=== PATIENT | female | born 1970 | race Caucasian/White ===

== ENCOUNTER 2023-10-05 10:48 | Inpatient (IN) | payer MEDICAID, OTHER ==
[~2023-10-05] VITALS: Ht 170.2 cm; Wt 90.7 kg
[2023-10-05 11:20] LABS: GLUCOMETER DEV NAME(LOC) ER.7; GLUCOSE,POINT OF CARE 242 MG/DL (70-110)
[2023-10-05] MEDS ORDERED: ZOLPIDEM TARTRATE 10 MG TABLET PO PRN (12:00)
[2023-10-05 15:02] LABS: BASOPHILS % (AUTO) 2.3 % (0.0-2.0); EOSINOPHILS % (AUTO) 2.6 % (1.0-6.0); HEMATOCRIT 45.3 % (36-46); HEMOGLOBIN 15.2 g/dL (12.0-16.0); LYMPHOCYTES # (AUTO) 2.5 K/uL (1.0-4.8); MEAN CORPUSCULAR HEMOGLOBIN 27.5 pg (26.0-34.0); MEAN CORPUSCULAR HGB CONC 33.5 G/dL (31.0-37.0); MEAN CORPUSCULAR VOLUME 82 fL (80-100); MONOCYTES # (AUTO) 0.6 K/uL (0.1-1.0); NEUTROPHILS # (AUTO) 5.8 K/uL (1.8-7.7); NEUTROPHILS % (AUTO) 62.1 % (40.0-70.0); PLATELET COUNT (AUTO) 245 K/uL (150-450); RED BLOOD CELL COUNT(AUTO) 5.53 MIL/uL (4.00-5.20); RED CELL DISTRIBUTION WIDTH 13.5 % (11.5-14.5); WHITE BLOOD COUNT (AUTO) 9.3 K/uL (4.5-11.0)
[2023-10-05 15:13] LABS: ANION GAP 8 mmol/L (8-16); CALCIUM, TOTAL 9.4 mg/dL (8.8-10.5); CARBON DIOXIDE 28 mmol/L (22-29); CHLORIDE 104 mmol/L (98-107); CREATININE 0.54 mg/dL (0.60-1.30); GLOMERULAR FILTR. RATE CALC > 60 mL/min (>60); GLUCOSE,RANDOM 177 mg/dL (70-110); POTASSIUM 3.7 mmol/L (3.5-5.1); SODIUM SERUM 140 mmol/L (136-145); UREA NITROGEN, BLOOD 10 mg/dL (7-18)
[2023-10-05] MEDS: LORazepam 2 MG TABLET PO PRN (16:15)
[2023-10-05] MEDS: HALOPERIDOL 5 MG TABLET PO PRN (16:15)
[2023-10-05 16:17] LABS: ALCOHOL, BLOOD (SERUM) < 3 mg/dL (0-10)
[2023-10-05] MEDS: HALOPERIDOL LACTATE 5 MG/ML VIAL IM ONE (17:21)
[2023-10-05] MEDS: LORazepam 2 MG/ML VIAL IM ONE (17:21)
[2023-10-05] MEDS: DiphenhydrAMINE HCL 50 MG/ML VIAL IM ONE (17:21)
[2023-10-05 18:26] LABS: COVID AG,FIA SOURCE NASAL SWAB
[2023-10-05 19:15] LABS: SARS-COV2 (COVID) ANTIGEN,FIA Negative (Negative)
[2023-10-06 02:38] VITALS: BP 94/62; PULSE 71; RESP 16; TEMP 97.6; O2SAT 96
[2023-10-06 06:10] LABS: GLUCOMETER DEV NAME(LOC) BV2S.; GLUCOSE,POINT OF CARE 180 MG/DL (70-110)
[2023-10-06] MEDS ORDERED: GLUCAGON,HUMAN RECOMBINANT 1 MG VIAL IM PRN (06:15)
[2023-10-06] MEDS: INSULIN LISPRO 100 UNITS/ML SQ PRN (06:28)
[2023-10-06] MEDS ORDERED: CloNIDine HCL 0.1 MG TABLET PO PRN (06:30)
[2023-10-06] MEDS ORDERED: DOCUSATE SODIUM 100 MG CAPSULE PO PRN (06:30)
[2023-10-06] MEDS ORDERED: ALBUTEROL SULFATE HFA 90 MCG/PUFF 8 GM INHALER IH PRN (06:30)
[2023-10-06] MEDS ORDERED: ONDANSETRON HCL 4 MG TABLET PO PRN (06:30)
[2023-10-06] MEDS ORDERED: LOPERAMIDE HCL 2 MG CAPSULE PO PRN (06:30)
[2023-10-06] MEDS ORDERED: ACETAMINOPHEN 325 MG TABLET PO PRN (06:30)
[2023-10-06] MEDS ORDERED: PETROLATUM,WHITE 28 GM JELLY TP PRN (06:30)
[2023-10-06] MEDS ORDERED: IBUPROFEN 400 MG TABLET PO PRN (06:30)
[2023-10-06] MEDS ORDERED: MAGNESIUM HYDROXIDE SUSPENSION 30 ML UDCUP PO PRN (06:30)
[2023-10-06] MEDS ORDERED: MAG HYDROX/ALUMINUM HYD/SIMETH ES 30 ML SUSPENSION UDCUP PO PRN (06:30)
[2023-10-06] MEDS ORDERED: GuaiFENesin/D-METHORPHAN [SUGAR-FREE] 200-20MG/10 ML SYRUP UDCUP PO PRN (06:30)
[2023-10-06] MEDS ORDERED: PNEUMOCOCCAL VACCINE POLYVALENT 0.5 ML SYRINGE [PPSV23] IM. ONE (07:00)
[2023-10-06 08:18] VITALS: BP 101/63; PULSE 80; RESP 15; TEMP 97.9; O2SAT 97
[2023-10-06 11:55] LABS: GLUCOMETER DEV NAME(LOC) BV2S.; GLUCOSE,POINT OF CARE 347 MG/DL (70-110)
[2023-10-06] MEDS: NICOTINE 14 MG/24 HOUR PATCH TD PRN (13:16)
[2023-10-06 17:10] LABS: GLUCOMETER DEV NAME(LOC) BV2S.; GLUCOSE,POINT OF CARE 122 MG/DL (70-110)
[2023-10-06 20:26] LABS: GLUCOMETER DEV NAME(LOC) BV2S.; GLUCOSE,POINT OF CARE 116 MG/DL (70-110)
[2023-10-07 06:51] LABS: GLUCOMETER DEV NAME(LOC) BV2S.; GLUCOSE,POINT OF CARE 206 MG/DL (70-110)
[2023-10-07 08:35] VITALS: BP 98/61; PULSE 87; RESP 17; TEMP 97.1; O2SAT 96
[2023-10-07 08:39] LABS: CHOL/HDL RATIO 4.9 (3.9-5.7); THYROID STIMULATING HORMONE 2.54 uIU/mL (0.36-3.74)
[2023-10-07 08:43] LABS: HEMOGLOBIN A1C 11.3 % (3.8-5.6)
[2023-10-07 11:20] VITALS: BP 160/82
[2023-10-07 12:51] LABS: GLUCOMETER DEV NAME(LOC) BV2S.; GLUCOSE,POINT OF CARE 311 MG/DL (70-110)
[2023-10-07] MEDS: OLANZapine 5 MG RAPDIS TABLET PO SCH (17:10)
[2023-10-07 20:13] VITALS: RESP 16
[2023-10-07 20:45] LABS: GLUCOMETER DEV NAME(LOC) BV2S.; GLUCOSE,POINT OF CARE 333 MG/DL (70-110)
[2023-10-08 04:56] LABS: GLUCOMETER DEV NAME(LOC) BV2S.; GLUCOSE,POINT OF CARE 155 MG/DL (70-110)
[2023-10-08 06:15] LABS: GLUCOMETER DEV NAME(LOC) BV2S.; GLUCOSE,POINT OF CARE 196 MG/DL (70-110)
[2023-10-08 09:02] VITALS: RESP 18
[2023-10-08 11:31] LABS: GLUCOMETER DEV NAME(LOC) BV2S.; GLUCOSE,POINT OF CARE 298 MG/DL (70-110)
[2023-10-08] MEDS ORDERED: OLAN5TAB94 PO (12:08)
== END 2023-10-08 14:35 | disposition home or self-care (01) | DRG 750 ==
LOC: EMS 10:48 → B2S 23:26
PROVIDERS: ADMIT Psychiatry & Neurology Psychiatry; ATTEND Psychiatry & Neurology Psychiatry
PROC: GZHZZZZ Group Psychotherapy (ICD-10-PCS; principal; 2023-10-06)
PROC: GZ51ZZZ Individual Psychotherapy, Behavioral (ICD-10-PCS; 2023-10-06)
PROC: GZ58ZZZ Individual Psychotherapy, Cognitive-Behavioral (ICD-10-PCS; 2023-10-06)
DX: F25.1 Schizoaffective disorder, depressive type (principal); R45.851 Suicidal ideations; E10.65 Type 1 diabetes mellitus with hyperglycemia; D72.829 Elevated white blood cell count, unspecified; E66.9 Obesity, unspecified; E87.6 Hypokalemia; F15.10 Other stimulant abuse, uncomplicated; F10.10 Alcohol abuse, uncomplicated; Z20.822 Contact with and (suspected) exposure to COVID-19; Y90.9 Presence of alcohol in blood, level not specified; Z79.4 Long term (current) use of insulin; Z87.891 Personal history of nicotine dependence; Z88.0 Allergy status to penicillin; Z91.51 Personal history of suicidal behavior; Z98.84 Bariatric surgery status; Z88.5 Allergy status to narcotic agent; Z88.8 Allergy status to other drugs, medicaments and biological substances; Z68.31 Body mass index [BMI] 31.0-31.9, adult
CPT/HCPCS: 80048; 80061; 82962; 83036; 84443; 85025; 99285; G0480; J1200; J1630; J2060

== ENCOUNTER 2024-02-19 17:46 | Inpatient (IN) | payer MEDICAID ==
[~2024-02-19 17:46] MED LIST: OLAN5TAB94 PO
[2024-02-19] MEDS ORDERED: ZOLPIDEM TARTRATE 10 MG TABLET PO PRN (18:30)
[2024-02-19 18:55] LABS: GLUCOMETER DEV NAME(LOC) POC.BV; POC SARS-COV2 AG, FIA NEGATIVE (NEGATIVE)
[2024-02-19 20:47] VITALS: BP 130/76; PULSE 74; RESP 18; TEMP 98; O2SAT 96
[2024-02-19 22:51] LABS: GLUCOMETER DEV NAME(LOC) BV3S.; GLUCOSE,POINT OF CARE 152 MG/DL (70-110)
[2024-02-20 06:36] LABS: GLUCOMETER DEV NAME(LOC) BV3S.; GLUCOSE,POINT OF CARE 156 MG/DL (70-110)
[2024-02-20 08:12] VITALS: BP 126/78; PULSE 83; RESP 16; TEMP 96.9; O2SAT 97
[2024-02-20 08:43] LABS: EOSINOPHILS % (AUTO) 3.7 % (1.0-6.0); HEMATOCRIT 40.3 % (36-46); HEMOGLOBIN 13.8 g/dL (12.0-16.0); LYMPHOCYTES # (AUTO) 2.5 K/uL (1.0-4.8); LYMPHOCYTES % (AUTO) 26.8 % (22.0-44.0); MEAN CORPUSCULAR HEMOGLOBIN 29.1 pg (26.0-34.0); MEAN CORPUSCULAR HGB CONC 34.3 G/dL (31.0-37.0); MEAN CORPUSCULAR VOLUME 85 fL (80-100); MONOCYTES # (AUTO) 0.6 K/uL (0.1-1.0); MONOCYTES % (AUTO) 6.2 % (2.0-9.0); NEUTROPHILS # (AUTO) 5.6 K/uL (1.8-7.7); NEUTROPHILS % (AUTO) 61.3 % (40.0-70.0); PLATELET COUNT (AUTO) 289 K/uL (150-450); RED BLOOD CELL COUNT(AUTO) 4.76 MIL/uL (4.00-5.20); RED CELL DISTRIBUTION WIDTH 13.6 % (11.5-14.5); WHITE BLOOD COUNT (AUTO) 9.2 K/uL (4.5-11.0)
[2024-02-20 08:45] LABS: HEMOGLOBIN A1C 7.5 % (3.8-5.6)
[2024-02-20 09:03] LABS: ALANINE AMINOTRANSFERASE 15 U/L (12-78); ALBUMIN 2.8 g/dL (3.4-5.0); ALKALINE PHOSPHATASE 62 U/L (46-116); ANION GAP 4 mmol/L (8-16); ASPARTATE AMINOTRANSFERASE 14 U/L (15-37); BILIRUBIN,TOTAL 0.4 mg/dL (0.1-1.0); CALCIUM, TOTAL 8.8 mg/dL (8.8-10.5); CARBON DIOXIDE 30 mmol/L (22-29); CHLORIDE 105 mmol/L (98-107); CHOL/HDL RATIO 3.2 (3.9-5.7); CHOLESTEROL 178 mg/dL (131-200); CREATININE 0.68 mg/dL (0.60-1.30); FREE T4 (FREE THYROXINE) 1.14 ng/dL (0.76-1.46); GLOMERULAR FILTR. RATE CALC > 60 mL/min (>60); GLUCOSE,RANDOM 169 mg/dL (70-110); HDL CHOLESTEROL 55 mg/dL (40-60); LDL CHOL (CALC.) 100 mg/dL (0-130); POTASSIUM 3.9 mmol/L (3.5-5.1); SODIUM SERUM 139 mmol/L (136-145); T4 (THYROXINE) 8.6 mcg/dL (4.7-13.3); THYROID STIMULATING HORMONE 1.84 uIU/mL (0.36-3.74); TOTAL PROTEIN, SERUM 6.3 g/dL (6.4-8.2); TRIGLYCERIDES 113 mg/dL (15-150); UREA NITROGEN, BLOOD 10 mg/dL (7-18)
[2024-02-20 11:56] LABS: GLUCOMETER DEV NAME(LOC) BV3S.; GLUCOSE,POINT OF CARE 201 MG/DL (70-110)
[2024-02-20] MEDS ORDERED: MAG HYDROX/ALUMINUM HYD/SIMETH ES 30 ML SUSPENSION UDCUP PO PRN (14:45)
[2024-02-20] MEDS ORDERED: PETROLATUM,WHITE 28 GM JELLY TP PRN (14:45)
[2024-02-20] MEDS ORDERED: MAGNESIUM HYDROXIDE SUSPENSION 30 ML UDCUP PO PRN (14:45)
[2024-02-20] MEDS ORDERED: ONDANSETRON 4 MG TABLET PO PRN (14:45)
[2024-02-20] MEDS ORDERED: CloNIDine HCL 0.1 MG TABLET PO PRN (14:45)
[2024-02-20] MEDS ORDERED: ALBUTEROL SULFATE HFA 90 MCG/PUFF 8 GM INHALER IH PRN (14:45)
[2024-02-20] MEDS ORDERED: DOCUSATE SODIUM 100 MG CAPSULE PO PRN (14:45)
[2024-02-20] MEDS ORDERED: LOPERAMIDE HCL 2 MG CAPSULE PO PRN (14:45)
[2024-02-20] MEDS ORDERED: GuaiFENesin/D-METHORPHAN [SUGAR-FREE] 200-20MG/10 ML SYRUP UDCUP PO PRN (14:45)
[2024-02-20] MEDS ORDERED: IBUPROFEN 400 MG TABLET PO PRN (14:45)
[2024-02-20] MEDS ORDERED: NICOTINE 14 MG/24 HOUR PATCH TD PRN (14:45)
[2024-02-20] MEDS ORDERED: ACETAMINOPHEN 325 MG TABLET PO PRN (14:45)
[2024-02-20] MEDS: OLANZapine 5 MG TABLET PO SCH (16:12)
[2024-02-20 16:41] LABS: GLUCOMETER DEV NAME(LOC) BV3S.; GLUCOSE,POINT OF CARE 202 MG/DL (70-110)
[2024-02-20] MEDS: TraZODone HCL 150 MG TABLET PO SCH (20:16)
[2024-02-20 20:28] VITALS: BP 125/69; PULSE 70; RESP 16; TEMP 97.9; O2SAT 98
[2024-02-20 20:45] LABS: GLUCOMETER DEV NAME(LOC) BV3S.; GLUCOSE,POINT OF CARE 218 MG/DL (70-110)
[2024-02-21 06:31] LABS: GLUCOMETER DEV NAME(LOC) BV3S.; GLUCOSE,POINT OF CARE 169 MG/DL (70-110)
[2024-02-21] MEDS: ATOMOXETINE HCL 40 MG CAPSULE PO SCH (08:17)
[2024-02-21 08:46] VITALS: BP 124/75; PULSE 79; RESP 19; TEMP 97; O2SAT 99
[2024-02-21] MEDS: HALOPERIDOL 5 MG TABLET PO PRN (11:22)
[2024-02-21] MEDS: LORazepam 2 MG TABLET PO PRN (11:22)
[2024-02-21 11:40] LABS: GLUCOMETER DEV NAME(LOC) BV3S.; GLUCOSE,POINT OF CARE 208 MG/DL (70-110)
[2024-02-22 03:36] LABS: GLUCOMETER DEV NAME(LOC) BV3S.; GLUCOSE,POINT OF CARE 260 MG/DL (70-110)
[2024-02-22 06:40] LABS: GLUCOMETER DEV NAME(LOC) BV3S.; GLUCOSE,POINT OF CARE 204 MG/DL (70-110)
[2024-02-22 08:09] VITALS: BP 127/67; PULSE 79; RESP 17; TEMP 96.6; O2SAT 95
[2024-02-22 11:50] LABS: GLUCOMETER DEV NAME(LOC) BV3S.; GLUCOSE,POINT OF CARE 295 MG/DL (70-110)
[2024-02-22] MEDS: INFLUENZA VIRUS VACCINE TVS (6MO+) 2024-25/PF 45 MCG/0.5 ML SYRINGE IM. ONE (16:09)
[2024-02-22 17:06] LABS: GLUCOMETER DEV NAME(LOC) BV3S.; GLUCOSE,POINT OF CARE 251 MG/DL (70-110)
[2024-02-22 20:00] VITALS: BP 98/64; PULSE 72; RESP 16; TEMP 97.1; O2SAT 96
[2024-02-23 06:16] LABS: GLUCOMETER DEV NAME(LOC) BV3S.; GLUCOSE,POINT OF CARE 197 MG/DL (70-110)
[2024-02-23 08:41] LABS: HEMOGLOBIN A1C 7.9 % (3.8-5.6)
[2024-02-23 08:53] LABS: CHOL/HDL RATIO 3.8 (3.9-5.7); THYROID STIMULATING HORMONE 2.66 uIU/mL (0.36-3.74)
[2024-02-23 09:11] VITALS: BP 130/84; PULSE 91; RESP 17; TEMP 97.9; O2SAT 96
[2024-02-23 11:45] LABS: GLUCOMETER DEV NAME(LOC) BV3S.; GLUCOSE,POINT OF CARE 214 MG/DL (70-110)
[2024-02-23] MEDS: MetFORMIN HCL 500 MG TABLET PO SCH (16:22)
[2024-02-23 17:06] LABS: GLUCOMETER DEV NAME(LOC) BV3S.; GLUCOSE,POINT OF CARE 265 MG/DL (70-110)
[2024-02-23 23:29] VITALS: BP 110/70; PULSE 80; RESP 18; TEMP 97; O2SAT 99
[2024-02-24 08:11] VITALS: RESP 18
[2024-02-24 14:16] LABS: GLUCOMETER DEV NAME(LOC) BV3S.; GLUCOSE,POINT OF CARE 297 MG/DL (70-110)
[2024-02-24 20:11] VITALS: BP 104/68; PULSE 101; RESP 18; TEMP 97.5; O2SAT 98
[2024-02-25 06:26] LABS: GLUCOMETER DEV NAME(LOC) BV3S.; GLUCOSE,POINT OF CARE 204 MG/DL (70-110)
[2024-02-25 08:12] VITALS: BP 111/64; PULSE 86; RESP 16; TEMP 97.5; O2SAT 97
[2024-02-25 20:31] VITALS: BP 106/68; PULSE 91; RESP 16; TEMP 97; O2SAT 97
[2024-02-26 06:21] LABS: GLUCOMETER DEV NAME(LOC) BV3S.; GLUCOSE,POINT OF CARE 173 MG/DL (70-110)
[2024-02-26 08:11] VITALS: BP 121/73; PULSE 79; RESP 16; TEMP 96.9; O2SAT 97
[2024-02-26] MEDS ORDERED: METF-1211 PO (10:12)
[2024-02-26] MEDS ORDERED: ATOM40CA9 PO (10:12)
[2024-02-26] MEDS ORDERED: TRAZ-283 PO (10:12)
[2024-02-26] MEDS ORDERED: OLAN5TAB52 PO (10:12)
[2024-02-26 11:55] LABS: GLUCOMETER DEV NAME(LOC) BV3S.; GLUCOSE,POINT OF CARE 312 MG/DL (70-110)
== END 2024-02-26 12:15 | disposition home or self-care (01) | DRG 750 ==
LOC: B3A 18:18
PROVIDERS: ADMIT Psychiatry & Neurology Psychiatry; ATTEND Psychiatry & Neurology Psychiatry
PROC: GZ56ZZZ Individual Psychotherapy, Supportive (ICD-10-PCS; principal; 2024-02-20)
PROC: GZHZZZZ Group Psychotherapy (ICD-10-PCS; 2024-02-20)
PROC: GZ52ZZZ Individual Psychotherapy, Cognitive (ICD-10-PCS; 2024-02-20)
DX: F25.1 Schizoaffective disorder, depressive type (principal); R45.851 Suicidal ideations; E10.65 Type 1 diabetes mellitus with hyperglycemia; Z20.822 Contact with and (suspected) exposure to COVID-19; Y90.9 Presence of alcohol in blood, level not specified; F10.10 Alcohol abuse, uncomplicated; Z88.0 Allergy status to penicillin; Z88.8 Allergy status to other drugs, medicaments and biological substances; Z88.5 Allergy status to narcotic agent; F41.9 Anxiety disorder, unspecified; G47.00 Insomnia, unspecified; F90.9 Attention-deficit hyperactivity disorder, unspecified type; Z79.899 Other long term (current) drug therapy; Z79.4 Long term (current) use of insulin; Z91.199 Patient's noncompliance with other medical treatment and regimen due to unspecified reason; I10 Essential (primary) hypertension
CPT/HCPCS: 80053; 80061; 82962; 83036; 84436; 84439; 84443; 85025; 86592